=== PATIENT | male | born 1995 | race Caucasian/White ===

== ENCOUNTER 2017-09-17 17:00 | Emergency (ER) | payer MEDICAID | END 2017-09-17 17:56 | disposition home or self-care (01) | LOC: E/R 17:00 | DX: R21 Rash and other nonspecific skin eruption (principal) | CPT/HCPCS: 99283; Z7502 ==

== ENCOUNTER 2019-03-10 23:00 | Inpatient (IN) | payer OTHER ==
[2019-03-10] MEDS: METHYLPREDNISOLONE 125 MG INJ IV (23:29)
[2019-03-10] MEDS: ACETAMINOPHEN 500 MG TAB PO (23:29)
[2019-03-10] MEDS: LEVALBUTEROL (NEB) 1.25 MG/0.5 ML AMP HHN (23:31)
[2019-03-10] MEDS: KETOROLAC 30 MG INJ IM (23:59)
[2019-03-11] MEDS: KETOROLAC 30 MG INJ IV (00:12)
[2019-03-11] MEDS: CEFTRIAXONE 1 GM/50 ML (PMX) 50 ML IVPB (01:13)
[2019-03-11] MEDS ORDERED: CEFTRIAXONE 1 GM INJ IM (01:30)
[2019-03-11] MEDS: LEVALBUTEROL (NEB) 1.25 MG/0.5 ML AMP HHN (01:44)
[2019-03-11] MEDS: MAGNESIUM SULFATE 1 GM/D5W 100 ML IVPB (02:32)
[2019-03-11] MEDS: SOD CHLORIDE 0.9% 1,000 ML IV ×2 (02:32→05:45)
[2019-03-11 02:52] LABS: ADD MAN DIFF? NO
[2019-03-11 02:56] LABS: WHITE BLOOD COUNT 16.9 10^3/ul (4.8-10.8)
[2019-03-11 02:56] LABS: BASOPHIL # 0.1 10^3/ul (0.0-0.1); BASOPHILS % 0.3 % (0.0-2.0); EOSINOPHILS % 0.1 % (0.0-7.0); HEMATOCRIT 49.8 % (42.0-52.0); HEMOGLOBIN 17.3 g/dl (14.0-18.0); LYMPHOCYTES # 0.7 10^3/ul (0.8-2.9); LYMPHOCYTES % 4.1 % (15.0-51.0); MEAN CORPUSCULAR HEMOGLOBIN 30.6 pg (29.0-33.0); MEAN CORPUSCULAR HGB CONC 34.7 g/dl (32.0-37.0); MEAN PLATELET VOLUME 10.1 fl (7.4-10.4); MONOCYTE # 0.4 10^3/ul (0.3-0.9); MONOCYTES % 2.1 % (0.0-11.0); NEUTROPHIL # 15.7 10^3/ul (1.6-7.5); PLATELET COUNT 280 10^3/UL (140-415); RED BLOOD COUNT 5.66 10^6/ul (4.70-6.10)
[2019-03-11 03:15] LABS: INR 1.17; PT RATIO 1.2
[2019-03-11 03:16] LABS: PARTIAL THROMBOPLASTIN TIME 30.9 Sec (23.0-35.0)
[2019-03-11 03:18] LABS: D-DIMER 744.86 ng/ml (<460)
[2019-03-11 03:18] LABS: MAGNESIUM 1.8 mg/dl (1.7-2.5)
[2019-03-11 03:19] LABS: ALANINE AMINOTRANSFERASE 20 IU/L (13-69); ALBUMIN 4.7 g/dl (3.3-4.9); ALKALINE PHOSPHATASE 62 IU/L (42-121); ANION GAP 10 (5-13); ASPARTATE AMINO TRANSFERASE 21 IU/L (15-46); BILIRUBIN,INDIRECT 1.4 mg/dl (0-1.1); BILIRUBIN,TOTAL 1.4 mg/dl (0.2-1.3); BLOOD UREA NITROGEN 12 mg/dl (7-20); CALCIUM 9.6 mg/dl (8.4-10.2); CARBON DIOXIDE 26 mmol/L (21-31); CHLORIDE 104 mmol/L (97-110); CREATININE 0.98 mg/dl (0.61-1.24); Estimated GFR > 60 mL/min (>60); GLUCOSE 161 mg/dl (70-220); POTASSIUM 3.8 mmol/L (3.5-5.1); SODIUM 140 mmol/L (135-144); TOTAL PROTEIN 8.3 g/dl (6.1-8.1)
[2019-03-11 03:30] LABS: TROPONIN-I < 0.012 ng/ml (0.000-0.120)
[2019-03-11 03:37] LABS: AMPHETAMINE/METHAMPHETAMINE Negative (NEGATIVE); BARBITURATES Negative (NEGATIVE); BENZODIAZEPINES Negative (NEGATIVE); CANNABINOIDS Negative (NEGATIVE); COCAINE Negative (NEGATIVE); OPIATES Negative (NEGATIVE)
[2019-03-11] MEDS: SODIUM CHLORIDE 0.9% 1L BAG IV* (03:40)
[2019-03-11] MEDS: AZITHROMYCIN 500MG/NS (PMX) 250 ML IVPB (03:53)
[2019-03-11] MEDS: IOHEXOL 100 ML (04:32)
[2019-03-11] MEDS: SOD CHLORIDE 0.9% 100 ML (04:32)
[2019-03-11] MEDS ORDERED: ACETAMINOPHEN 325 MG TAB PO (05:00)
[2019-03-11] MEDS ORDERED: NACL 0.9% 3 ML SYG IV (05:00)
[2019-03-11] MEDS ORDERED: IBUPROFEN 600 MG TAB PO (05:00)
[2019-03-11] MEDS ORDERED: ONDANSETRON 4 MG INJ IV (05:00)
[2019-03-11] MEDS ORDERED: HYDROCODONE/APAP (5/325) TAB PO (05:00)
[2019-03-11] MEDS ORDERED: BISACODYL (EC) 5 MG TAB PO (05:00)
[2019-03-11] MEDS ORDERED: DOCUSATE SODIUM 100 MG CAP PO (05:00)
[2019-03-11 05:03] LABS: ADD UMIC NO; UR ASCORBIC ACID NEGATIVE (NEGATIVE); UR BILIRUBIN (Dip) NEGATIVE (NEGATIVE); UR BLOOD (Dip) NEGATIVE (NEGATIVE); UR CLARITY CLEAR (CLEAR); UR COLOR YELLOW (YELLOW); UR GLUCOSE (Dip) NEGATIVE (NEGATIVE); UR KETONES (Dip) TRACE mg/dL (NEGATIVE); UR LEUKOCYTE ESTERASE (Dip) NEGATIVE Leu/ul (NEGATIVE); UR NITRITE (Dip) NEGATIVE (NEGATIVE); UR SPECIFIC GRAVITY (Dip) 1.013 (1.003-1.030); UR TOTAL PROTEIN (Dip) NEGATIVE (NEGATIVE); UR UROBILINOGEN (Dip) NEGATIVE (NEGATIVE)
[2019-03-11] MEDS: SOD CHLORIDE 0.9% 500 ML IV (07:58)
[2019-03-11 08:41] LABS: LACTIC ACID 1.7 mmol/L (0.5-2.0)
[2019-03-11] MEDS: LORATADINE 10 MG TAB PO (10:21)
[2019-03-11] MEDS: ENOXAPARIN 40 MG/0.4 ML SYG SC (10:23)
[2019-03-11 10:55] LABS: LACTIC ACID 1.6 mmol/L (0.5-2.0)
[2019-03-11] MEDS ORDERED: CEPASTAT LOZENGE MT (13:30)
[2019-03-11] MEDS: ALBUTEROL/IPRATROPIUM (NEB) 3 ML AMP HHN (13:42)
[2019-03-12] MEDS: CEFTRIAXONE 1 GM/50 ML (PMX) 50 ML IVPB (00:42)
[2019-03-12] MEDS: AZITHROMYCIN 250 MG in SOD CHLORIDE 0.9% 250 ML IVPB (01:56)
[2019-03-12 06:09] LABS: ADD MAN DIFF? NO
[2019-03-12 06:15] LABS: WHITE BLOOD COUNT 12.4 10^3/ul (4.8-10.8)
[2019-03-12 06:15] LABS: BASOPHILS % 0.2 % (0.0-2.0); EOSINOPHILS # 0.2 10^3/ul (0.0-0.5); EOSINOPHILS % 1.4 % (0.0-7.0); LYMPHOCYTES # 1.6 10^3/ul (0.8-2.9); LYMPHOCYTES % 13.2 % (15.0-51.0); MEAN CORPUSCULAR HEMOGLOBIN 30.2 pg (29.0-33.0); MEAN CORPUSCULAR VOLUME 88.7 fl (82.0-101.0); MEAN PLATELET VOLUME 10.2 fl (7.4-10.4); MONOCYTE # 1.2 10^3/ul (0.3-0.9); MONOCYTES % 9.3 % (0.0-11.0); NEUTROPHIL # 9.4 10^3/ul (1.6-7.5); NEUTROPHILS % 75.4 % (39.0-77.0); PLATELET COUNT 274 10^3/UL (140-415); RED CELL DISTRIBUTION WIDTH 12.8 % (11.5-14.5)
[2019-03-12 06:36] LABS: ALANINE AMINOTRANSFERASE 26 IU/L (13-69); ALBUMIN 3.6 g/dl (3.3-4.9); ALBUMIN/GLOBULIN RATIO 1.09; ALKALINE PHOSPHATASE 46 IU/L (42-121); ANION GAP 6 (5-13); ASPARTATE AMINO TRANSFERASE 19 IU/L (15-46); BILIRUBIN,INDIRECT 0.9 mg/dl (0-1.1); BILIRUBIN,TOTAL 0.9 mg/dl (0.2-1.3); BLOOD UREA NITROGEN 13 mg/dl (7-20); CARBON DIOXIDE 28 mmol/L (21-31); CHLORIDE 106 mmol/L (97-110); CHOL/HDL RATIO 3.7 RATIO; CHOLESTEROL 113 mg/dl (100-200); CREATININE 0.85 mg/dl (0.61-1.24); Estimated GFR > 60 mL/min (>60); GLUCOSE 105 mg/dl (70-220); HDL CHOLESTEROL 30 mg/dl (30-63); LDL CHOLESTEROL,CALCULATED 69 mg/dl; MAGNESIUM 1.9 mg/dl (1.7-2.5); POTASSIUM 4.5 mmol/L (3.5-5.1); SODIUM 140 mmol/L (135-144); TOTAL PROTEIN 6.9 g/dl (6.1-8.1); TRIGLYCERIDES 68 mg/dl (0-149)
[2019-03-12 08:23] LABS: HEMOGLOBIN A1C 4.7 % (0-5.9)
[2019-03-12] MEDS: LORATADINE 10 MG TAB PO (09:20)
[2019-03-12] MEDS: ENOXAPARIN 40 MG/0.4 ML SYG SC (09:21)
[2019-03-13] MEDS: CEFTRIAXONE 1 GM/50 ML (PMX) 50 ML IVPB (00:27)
[2019-03-13] MEDS: AZITHROMYCIN 250 MG in SOD CHLORIDE 0.9% 250 ML IVPB (01:21)
[2019-03-13] MEDS: LORATADINE 10 MG TAB PO (08:44)
[2019-03-13] MEDS: ENOXAPARIN 40 MG/0.4 ML SYG SC (08:48)
== END 2019-03-13 15:59 | disposition home or self-care (01) | DRG 871 ==
LOC: FTE 23:00 → 2NE 03-11 04:42
DX: A41.9 Sepsis, unspecified organism (principal); J18.9 Pneumonia, unspecified organism; E66.9 Obesity, unspecified; Z68.31 Body mass index [BMI] 31.0-31.9, adult; Z71.3 Dietary counseling and surveillance; Z87.891 Personal history of nicotine dependence
CPT/HCPCS: 71046; 71275; 80053; 80061; 80307; 81003; 83036; 83605; 83735; 84443; 84484; 85025; 85378; 85610; 85730; 87400; 93005; 93970; 94640; 94664; 96361; 96374; 96375; 99285-25